=== PATIENT | male | born 1975 | race Caucasian/White ===

== ENCOUNTER 2022-12-03 16:08 | Emergency (ER) | payer BC, SELFPAY ==
[2022-12-03 16:19] VITALS: BP 142/95; PULSE 75; RESP 18; TEMP 36.6; O2SAT 99
--- NOTE | 2022-12-03 16:26 | ED.SKABFB ---
HPI - Skin/Abscess/Foreign Bdy General Chief complaint: Skin/Abscess/Foreign Body Stated complaint: Poison Ilda Time Seen by Provider: 12/03/22 16:22 Source: patient and RN notes reviewed Mode of arrival: ambulatory Limitations: no limitations History of Present Illness HPI narrative: Patient presents today complaining of pruritic rash to the bilateral legs, extending to the left chest. States he was exposed to either poison ilda or poison sumac 4 days ago and started experiencing itching 3 days ago. States rash continues to expand. He has tried hydrocortisone, Caladryl, Benadryl, and Tecnu with very mild relief of symptoms. Related Data Home Medications Medication Instructions Recorded Confirmed mirabegron 50 mg tablet,extended 50 mg PO DAILY 12/03/22 12/03/22 release 24 hr (Myrbetriq) montelukast 10 mg tablet 10 mg PO DAILY 12/03/22 12/03/22 omeprazole 20 mg capsule,delayed 20 mg PO DAILY 12/03/22 12/03/22 release pravastatin 40 mg tablet 40 mg PO DAILY 12/03/22 12/03/22 Allergies Allergy/AdvReac Type Severity Reaction Status Date / Time No Known Allergies Allergy Unknown Unverified 12/03/22 16:17 Review of Systems Review of Systems: CONSTITUTIONAL: Denies body aches, fever, chills, or sweats. EYES: Denies visual changes, redness, or discharge. ENT: Denies rhinorrhea, congestion, sore throat, or otalgia. CARDIOVASCULAR: Denies chest pain, palpitations, or edema. RESPIRATORY: Denies cough or dyspnea. GASTROINTESTINAL: Denies abdominal pain, nausea, vomiting, or diarrhea. GENITOURINARY: Denies dysuria or hematuria. SKIN: + pruritic rash MUSCULOSKELETAL: Denies back pain, joint pain, or myalgia. NEUROLOGIC: Denies headache, numbness, tingling, or weakness. PSYCH: Denies depression or anxiety. [facility] Family History Family History Other Carcinoma of colon Malignant neoplasm of prostate Social History Social History Smoking status: Never smoker Alcohol intake: current Comments At time of signature, I have reviewed and agree with nursing past medical, surgical, social and family history unless otherwise noted. Please see nursing chart for further information. There is no relevant family history pertinent to the presenting complaint Exam Narrative: GENERAL: Well-appearing, well-nourished, and in no acute distress. HEAD: Normocephalic, atraumatic. EYES: EOMI. No redness or drainage. Conjunctivae normal. ENT: Mucous membranes pink and moist. NECK: Normal AROM. CHEST: No respiratory distress. EXTREMITIES: Normal range of motion. No edema. SKIN: Warm, dry. Capillary refill normal. Normal skin turgor. Hyper pigmented papules spread over the bilateral upper and lower legs, left groin, extending to the left abdomen and chest. No crusting, erythema, induration, drainage. NEURO: No focal deficits. Alert and oriented x3. Gait steady. PSYCH: Normal affect. No signs of depression or anxiety. Course Course Level of Care: Express Care Visit Vital Signs Vital signs: Vital Signs Temperature 97.9 F 12/03/22 16:19 Pulse Rate 75 12/03/22 16:19 Respiratory Rate 18 12/03/22 16:19 Blood Pressure 142/95 H 12/03/22 16:19 Pulse Oximetry 99 12/03/22 16:19 Temperature 97.9 F 12/03/22 16:19 Pulse Rate 75 12/03/22 16:19 Respiratory Rate 18 12/03/22 16:19 Blood Pressure 142/95 H 12/03/22 16:19 Pulse Oximetry 99 12/03/22 16:19 Reviewed. Pt has been instructed to follow up with his PCP regarding his elevated blood pressure today. MDM - Skin/Abscess/Foreign Bdy MDM Narrative Medical decision making narrative: Symptoms and exam consistent with contact dermatitis/poison sumac/oak. Will treat with course of prednisone. No testing indicated at this time. Anticipatory guidance given. Differential Diagnosis Differential diagnosis: Likely abs
== END 2022-12-03 16:36 | disposition home or self-care (01) ==
PROVIDERS: Emergency Provider Nurse Practitioner; PCP Internal Medicine
DX: L25.9 Unspecified contact dermatitis, unspecified cause (principal); E78.00 Pure hypercholesterolemia, unspecified
CPT/HCPCS: 99203; G0463